=== PATIENT | male | born 1995 | race Caucasian/White ===

== ENCOUNTER 2017-02-02 16:46 | Emergency (ER) | payer OTHER ==
[~2017-02-02] VITALS: Ht 175.3 cm; Wt 65.8 kg
[2017-02-02 17:49] LABS: CALCIUM 9.8 mg/dL (8.5-10.1); CARBON DIOXIDE 28.6 mmol/L (21-32); CHLORIDE SERUM 99 mmol/L (98-107); GFR1 > 60 mL/min; GLUCOSE SERUM 109 mg/dL (74-106); POTASSIUM SERUM 3.4 mmol/L (3.5-5.1); SODIUM SERUM 136 mmol/L (136-145)
[2017-02-02 17:54] LABS: ALBUMIN 4.7 g/dL (3.4-5.0); ALKALINE PHOSPHATASE 74 U/L (46-116); ALT/SGPT 30 U/L (16-63); AST/SGOT 44 U/L (15-37); BILIRUBIN TOTAL 1.2 mg/dL (0.20-1.00); TOTAL PROTEIN, SERUM 8.1 g/dL (6.4-8.2)
[2017-02-02 19:06] VITALS: BP 133/86
== END 2017-02-02 19:07 | disposition home or self-care (01) ==
LOC: ED 16:46
PROVIDERS: Emergency Medicine
DX: T43.624A Poisoning by amphetamines, undetermined, initial encounter (principal); F41.9 Anxiety disorder, unspecified; R10.9 Unspecified abdominal pain; Y92.89 Other specified places as the place of occurrence of the external cause
CPT/HCPCS: J2060; J7030; Q0092